=== PATIENT | male | born 1960 | race Caucasian/White ===

== ENCOUNTER 2025-04-15 21:30 | Emergency (ER) | payer MEDICARE, BC ==
[~2025-04-15] VITALS: Ht 182.9 cm; Wt 80.3 kg
[2025-04-15 21:33] VITALS: BP 161/84
[2025-04-15] MEDS ORDERED: ZOLP5TAB2 PO (21:49)
[2025-04-15] MEDS ORDERED: LAMO100T2 PO (21:49)
[2025-04-15] MEDS ORDERED: ATOR20TA PO (21:49)
[2025-04-15] MEDS ORDERED: BUPR200T2 PO (21:49)
[2025-04-15] MEDS ORDERED: MIRT-94 PO (21:49)
[2025-04-15] MEDS ORDERED: ASPI81TA31 PO (21:49)
[2025-04-15 22:15] VITALS: TEMP 98
[2025-04-15] MEDS ORDERED: TIZA4TAB5 PO (22:15)
[2025-04-15] MEDS: ACETAMINOPHEN 500 MG TABLET PO ONE (22:15)
[2025-04-15 22:24] VITALS: BP 156/82; O2SAT 97
== END 2025-04-15 22:25 | disposition home or self-care (01) ==
LOC: ER 21:44
DX: S06.0X0A Concussion without loss of consciousness, initial encounter (principal); S16.1XXA Strain of muscle, fascia and tendon at neck level, initial encounter; F32.A Depression, unspecified; Z79.82 Long term (current) use of aspirin; Z79.899 Other long term (current) drug therapy; Z98.890 Other specified postprocedural states; V43.52XA Car driver injured in collision with other type car in traffic accident, initial encounter; Y92.410 Unspecified street and highway as the place of occurrence of the external cause; Y93.89 Activity, other specified; Y99.8 Other external cause status
CPT/HCPCS: A4606; A4663; A9150

== ENCOUNTER 2025-05-09 12:19 | Emergency (ER) | payer MEDICARE, BC ==
[~2025-05-09] VITALS: Ht 182.9 cm; Wt 78.0 kg
[~2025-05-09 12:19] MED LIST: ASPI81TA31 PO; ATOR20TA PO; BUPR200T2 PO; LAMO100T2 PO; MIRT-94 PO; TIZA-205 PO; ZOLP5TAB2 PO
[2025-05-09 12:24] VITALS: BP 157/83
[2025-05-09] MEDS ORDERED: diphenhydrAMINE 50 MG/1 ML VIAL ONE (13:03)
[2025-05-09] MEDS ORDERED: ACETAMINOPHEN 500 MG TABLET ONE (13:03)
[2025-05-09] MEDS ORDERED: PROCHLORPERAZINE EDISYLATE 10 MG/2 ML VIAL ONE (13:03)
[2025-05-09] MEDS: PROCHLORPERAZINE EDISYLATE 10 MG/2 ML VIAL IV ONE (13:28)
[2025-05-09] MEDS: diphenhydrAMINE 50 MG/1 ML VIAL IVP ONE (13:28)
[2025-05-09] MEDS: ACETAMINOPHEN 500 MG TABLET PO ONE (13:33)
[2025-05-09] MEDS: IV NORMAL SALINE 1000 ML BAG IV ONE (13:34)
[2025-05-09] MEDS ORDERED: METH-807 PO (14:11)
[2025-05-09] MEDS ORDERED: MELO-107 PO (14:11)
[2025-05-09 14:34] VITALS: BP 146/78; TEMP 97.9; O2SAT 97
== END 2025-05-09 14:36 | disposition home or self-care (01) ==
LOC: ER 12:19
DX: R51.9 Headache, unspecified (principal); M54.2 Cervicalgia; F32.A Depression, unspecified; F41.9 Anxiety disorder, unspecified; Z79.82 Long term (current) use of aspirin; Z79.899 Other long term (current) drug therapy; Z98.890 Other specified postprocedural states
CPT/HCPCS: 99285; 70450; 96374; 96361; 96375; 72125; J1200; J0780; J7040; A4606; A4663; A9150